=== PATIENT | male | born 1970 | race Caucasian/White ===

== ENCOUNTER → 2016-10-08 | Outpatient (CLI) | payer OTHER ==
[~2016-10-08] VITALS: Ht 180.3 cm; Wt 113.4 kg
[2016-10-08 15:53] VITALS: BP 132/82; PULSE 93; Ht 180.3 cm; Wt 113.4 kg
== END | disposition home or self-care (01) ==
LOC: C.NEUR 14:39
PROVIDERS: ATTEND Physician Assistant
DX: G47.30 Sleep apnea, unspecified (principal)